=== PATIENT | female | born 1980 | race Hispanic/Latino ===

== ENCOUNTER 2017-04-26 13:38 | Outpatient (CLI) | payer OTHER ==
--- NOTE | 2017-04-26 15:50 | ULT ---
TRANSABDOMINAL AND TRANSVAGINAL PELVIC ULTRASOUND WITH DOPPLER (JAMISON-SCALE, COLOR-FLOW, AND SPECTRAL DOPPLER): HISTORY: No heart tones on the ultrasound performed at the office. FINDINGS: The uterus measures 12.4 x 6.3 x 7.1 cm. A single intrauterine gestation is present with a crown-rum p length of 2.13 cm, a gestational sac diameter of 4.36 cm, and a yolk sac diameter of 0.43 cm. No f etal heart tones are identified. Measurements correspond to an estimated gestational age of 9 weeks and 2 days. The left ovary measures 4.1 x 2.4 x 2.4 cm. In the right adnexa, there is a 3.9 x 4.8 x 3.6 cm struc ture, which could either represent the right ovary or a pedunculated fibroid. No free fluid is seen in the cul-de-sac. IMPRESSION: 1. Findings consistent with first trimester demise. 2. Pedunculated fibroid versus right ovary/ovarian mass. A follow-up exam should be obtained in 8 to 10 weeks. The report was called over the telephone to the clinical chemical manager, Carolynn Granados, at 3:19 p.m. CODE CR/CODE T POS: [facility]
== END 2017-04-26 13:39 | disposition home or self-care (01) ==
LOC: ULT 13:38
PROVIDERS: ATTEND Nurse Practitioner
DX: O09.91 Supervision of high risk pregnancy, unspecified, first trimester (principal); Z3A.09 9 weeks gestation of pregnancy
CPT/HCPCS: 76856

== ENCOUNTER 2017-05-26 18:40 | Emergency (ER) | payer OTHER ==
[2017-05-26 19:07] LABS: #Eosinphils 0.2 thou/uL (0.0-0.7); #Lymphocytes 4.7 thou/uL (1.20-3.40); #Monocytes 0.6 thou/uL (0.11-0.59); #Neutrophils 4.6 thou/uL (1.40-6.50); %Basophils 0.3 % (0.0-1.0); %Lymphocytes 46.2 % (21.0-51.0); %Monocytes 5.9 % (0.0-10.0); %Neutrophils 45.7 % (42.0-75.0); Hemoglobin 11.2 g/dL (12.0-16.0); Mean Corpuscular HGB CONC 34.4 g/dL (32.0-36.0); Mean Corpuscular Hemoglobin 31.4 pg (27.0-31.0); Mean Corpuscular Volume 91.2 fl (81.0-99.0); Mean Platelet Volume 7.3 fL (7.4-10.4); Platelet Count 288 thou/uL (130-400); RBC Distribution Width 11.2 % (11.5-14.5); Red Blood Cell (RBC) Count 3.57 mill/uL (4.20-5.40); White Blood Cell (WBC) Count 10.1 thou/uL (4.8-10.8)
[2017-05-26 21:48] LABS: Bilirubin Negative (Negative); Blood, Urine Large (Negative); Clarity CLOUDY (Clear); Glucose, Urine (Dipstick) Negative (Negative); Leukocyte Large (Negative); Nitrite Negative (Negative); Protein, Urine (Dipstick) Trace mg/dL (Neg-Trace); Specific Gravity, Urine 1.018 (1.002-1.036); Urobilinogen 0.2 mg/dL (0.2-1.0)
[2017-05-26 21:50] LABS: Bacteria/HPF Rare-Few HPF (None Seen); Hyaline Casts/LPF 7-10 HYALINE CAST LPF (0-3 Hyaline); Pathc Cast-AUWi Flag 1.62 (0-2.49); RBC/HPF GREATER THAN 50-TNTC HPF (0-3); Squamous Epithelial 0-3 HPF (0-3)
[2017-05-26] MEDS ORDERED: Misoprostol 200 MCG TAB VAG SCH (22:00)
--- NOTE | 2017-05-26 22:02 | PDOC.EVN ---
Event Note - Event Note Event Note: ER phone consult: [id number]: Reason for call: follow up AB Phone consultation I was just called by the MD in the ED at [facility]. This patient was referred to the ED for follow up. She was seen at [facility] last month (Apr) and DX with a demise at 9 weeks by cici (no FHTS). She was given cytotec (took oral and vaginal rather than all vaginal...800mcg, per SETH Fisher at [facility]) with subsequent bleed. She was seen in [place], [place] about 5 days ago with a BHCG there of around 400 or so. Now, her BHCG is decreased and is 106. There is no active VB, nor evidence of PID per the MD exam. Her HCT is 32. Spotting by history, no clots. I am current in L&D with another patient close to delivering with Dr Shea. The patient is aware I cannot see here at this time. The ED MD stated she is ok with phone consult as she is stable. Assessment: S/P first trimester AB DX by sono (positive IUP), s/p cytotec...with resolving BHCG. Per the ACOG PB 150, sono is used to confirm absence of retained gestational sac in patients who are stable. Plan: As BHCG is decreasing, I suspect this is resolving. We will order a second dose of cytotec 400mcg PV to be given n the ED. She is to follow up Monday at to reassess BHCG. Currently, not actively bleeding, HCT 32, RH positive...no need for emergent D&C at this time. ED physician agrees with assessment.
--- NOTE | 2017-05-26 22:18 | ULT ---
TRANSVAGINAL PELVIC ULTRASOUND 05/26/17 COMPARISON: 04/26/17 HISTORY: Vaginal bleeding since April 26. Previous demise. TECHNIQUE: Multiplanar alonzo scale with color doppler images were obtained in a transvaginal pelvic ultrasound. Spectral analysis of the doppler waveforms were performed. FINDINGS: The uterus is heterogeneous along the area of the endometrium. This area demonstrates increased flow and could potentially represent retained products of conception. Endometrial thickness measures appro ximately 1.5 cm. No gestational sac is seen within the uterus. No free fluid is seen in the pelvis. Both ovaries are normal in size and appearance and demonstrate n ormal internal flow. IMPRESSION: Thickened endometrium which is heterogeneous in appearance. This could represent retained products of conception. POS: [facility]
== END 2017-05-26 23:30 | disposition home or self-care (01) ==
LOC: ERS 18:40
DX: O03.4 Incomplete spontaneous abortion without complication (principal); Z87.891 Personal history of nicotine dependence
CPT/HCPCS: 36415; 76856; 81003; 81015; 84702; 85025; 86900; 86901; 87086